=== PATIENT | female | born 1950 | race Caucasian/White ===

== ENCOUNTER → 2017-04-24 | Outpatient (CLI) | payer MEDICARE, OTHER ==
[~2017-04-24] MED LIST: ACET-1757 PO; ASPI-496 PO; BISA5TAB38 PO; BISA5TAB5 PO; CYAN1TAB29 PO; EPHE1TAB PO; ESTR0.3T PO; GARL2000 PO; LISI5TAB7 PO; MELA1TAB8 PO; OMEG1CAP24 PO; TRAM50TA2 PO; VITA400C40 PO; [UNRECOGNIZED DRUG - OTHER] PO
== END | disposition home or self-care (01) ==
LOC: CFH 14:52
PROVIDERS: ATTEND Family Medicine
DX: M79.9 Soft tissue disorder, unspecified (principal)

== ENCOUNTER → 2017-10-16 | Outpatient (CLI) | payer MEDICARE, OTHER ==
[~2017-10-16] MED LIST changes: -VITA400C40 PO; +VITA400C43 PO
== END | disposition home or self-care (01) ==
LOC: RAD 10:55
PROVIDERS: ATTEND Nurse Practitioner Primary Care
DX: M51.36 Other intervertebral disc degeneration, lumbar region (principal); M41.86 Other forms of scoliosis, lumbar region
CPT/HCPCS: 72110

== ENCOUNTER → 2017-11-27 | Outpatient (CLI) | payer MEDICARE, OTHER | LOC: CFH 13:40 | PROVIDERS: ATTEND Nurse Practitioner Primary Care | DX: R10.9 Unspecified abdominal pain (principal); M51.36 Other intervertebral disc degeneration, lumbar region; Z90.49 Acquired absence of other specified parts of digestive tract | CPT/HCPCS: 72072; 74000 ==

== ENCOUNTER → 2017-12-08 | Outpatient (CLI) | payer MEDICARE, OTHER | END | disposition home or self-care (01) | LOC: CFH 11:53 | PROVIDERS: ATTEND Family Medicine | DX: Z12.31 Encounter for screening mammogram for malignant neoplasm of breast (principal); R92.2 Inconclusive mammogram | CPT/HCPCS: 77063; 77067 ==

== ENCOUNTER → 2018-10-04 | Outpatient (CLI) | payer MEDICARE | END | disposition home or self-care (01) | LOC: CFH 11:01 | PROVIDERS: ATTEND Family Medicine | DX: K76.0 Fatty (change of) liver, not elsewhere classified (principal) | CPT/HCPCS: 76705 ==

== ENCOUNTER → 2018-12-10 | Outpatient (CLI) | payer MEDICARE | END | disposition home or self-care (01) | LOC: CFH 12:06 | PROVIDERS: ATTEND Family Medicine | DX: Z12.31 Encounter for screening mammogram for malignant neoplasm of breast (principal) | CPT/HCPCS: 77063; 77067 ==

== ENCOUNTER 2019-06-22 10:49 | Outpatient (CLI) | payer MEDICARE, MEDICAID | END 2019-06-22 23:59 | disposition home or self-care (01) | LOC: CFH 10:49 | PROVIDERS: ATTEND Nurse Practitioner | DX: Z13.820 Encounter for screening for osteoporosis (principal); M25.551 Pain in right hip; M25.552 Pain in left hip; Z78.0 Asymptomatic menopausal state | CPT/HCPCS: 73523; 77080 ==

== ENCOUNTER → 2019-11-24 | Outpatient (CLI) | payer MEDICARE ==
[~2019-11-24] MED LIST changes: -ACET-1757 PO; +ACET-2065 PO; +GADOTERATE 7.5 MMOL/15 ML SYR ONE
== END | disposition home or self-care (01) ==
LOC: CFH 10:30
PROVIDERS: ATTEND Nurse Practitioner Family
DX: M47.816 Spondylosis without myelopathy or radiculopathy, lumbar region (principal); M48.07 Spinal stenosis, lumbosacral region
CPT/HCPCS: 72158; A9575

== ENCOUNTER → 2019-12-22 | Outpatient (CLI) | payer MEDICARE, MEDICAID ==
[~2019-12-22] MED LIST changes: -GADOTERATE 7.5 MMOL/15 ML SYR ONE
== END | disposition home or self-care (01) ==
LOC: CFH 10:14
PROVIDERS: ATTEND Family Medicine
DX: Z12.31 Encounter for screening mammogram for malignant neoplasm of breast (principal)
CPT/HCPCS: 77063; 77067

== ENCOUNTER 2020-09-22 14:28 | Emergency (ER) | payer MEDICARE ==
[~2020-09-22] VITALS: Ht 154.9 cm; Wt 72.1 kg
[2020-09-22 14:32] VITALS: BP 139/115
--- NOTE | 2020-09-22 15:25 | NUR ---
EMERGENCY ROOM ORDERLY: PT TO ROOM FROM LOBBY
--- NOTE | 2020-09-22 15:33 | NUR ---
pt walked to room. xr wnl. given ice pack/elevated. pearrl. a&ox4 gcs 15. sts "passed out" from etoh after falling last night, 4 beers. neuros intact. as
== END 2020-09-22 16:30 | disposition home or self-care (01) ==
LOC: ED 15:36
DX: S06.5X0A Traumatic subdural hemorrhage without loss of consciousness, initial encounter (principal); S60.211A Contusion of right wrist, initial encounter; F10.129 Alcohol abuse with intoxication, unspecified; Z87.891 Personal history of nicotine dependence; Z79.82 Long term (current) use of aspirin; W10.9XXA Fall (on) (from) unspecified stairs and steps, initial encounter; Y93.89 Activity, other specified; Y92.009 Unspecified place in unspecified non-institutional (private) residence as the place of occurrence of the external cause; Y99.8 Other external cause status; Y90.9 Presence of alcohol in blood, level not specified
CPT/HCPCS: 29125; 70450; 72125; 99285

== ENCOUNTER 2020-09-22 22:12 | Emergency (ER) | payer MEDICARE ==
[~2020-09-22] VITALS: Ht 154.9 cm; Wt 73.6 kg
--- NOTE | 2020-09-22 22:49 | NUR ---
PT HERE FOR REPEAT CT. PT HAD GLF AND HIT HER HEAD. PT TO CT
--- NOTE | 2020-09-22 23:29 | NUR ---
PT RESTING WAITING FOR CT RESULTS. VSS. BP IMPROVED FROM TRIAGE. PT HAS NO NEEDS AT THIS TIME. CALL LIGHT IN REACH
[2020-09-23 00:11] VITALS: BP 135/82
--- NOTE | 2020-09-23 00:11 | NUR ---
Patient given discharge instructions and they have confirmed that they understand the instructions. Patient ambulatory with steady gait.
== END 2020-09-23 00:13 | disposition home or self-care (01) ==
LOC: ED 22:29
DX: S06.5X0A Traumatic subdural hemorrhage without loss of consciousness, initial encounter (principal); W01.0XXA Fall on same level from slipping, tripping and stumbling without subsequent striking against object, initial encounter; Y93.89 Activity, other specified; Y92.89 Other specified places as the place of occurrence of the external cause; Y99.8 Other external cause status
CPT/HCPCS: 70450; 99284